=== PATIENT | female | born 1960 | race Two or more races ===

== ENCOUNTER 2017-08-14 16:44 | Inpatient (IN) | payer MEDICAID, OTHER ==
[~2017-08-14] VITALS: Ht 152.4 cm; Wt 80.8 kg
[2017-08-14] MEDS ORDERED: SODIUM CHLORIDE 0.9% 1,000ML IVBOLUS ONE (17:00)
[2017-08-14] MEDS ORDERED: SODIUM CHLORIDE FLUSH 10ML SYR IVF ONE (17:00)
[2017-08-14] MEDS ORDERED: PANTOPRAZOLE 80 MG in SODIUM CHLORIDE 0.9% 100 ML IV SCH (17:16)
[2017-08-14] MEDS ORDERED: PANTOPRAZOLE 80 MG in SODIUM CHLORIDE 0.9% 50 ML IVPB ONE (17:16)
[2017-08-14 17:22] LABS: MEAN CORPUSCULAR HEMOGLOBIN 40.6 pg (27.0-34.8); MEAN CORPUSCULAR HGB CONC 33.4 g/dL (32.4-35.8); MEAN CORPUSCULAR VOLUME 121.5 fL (80-100); MEAN PLATELET VOLUME 7.3 fL (7.4-10.4); PLATELET COUNT 479 x10^3/uL (130-400); RED BLOOD COUNT 2.57 x10^6/uL (3.82-5.3); RED CELL DISTRIBUTION WIDTH 15.5 % (9.6-15.2)
[2017-08-14] MEDS ORDERED: PLEASE ENTER WEIGHT MC SCH (17:26)
[2017-08-14 17:37] LABS: ALANINE AMINOTRANSFERASE 44 U/L (12-78); ALBUMIN 1.7 g/dL (3.4-5.0); ANION GAP 13 mmol/L (5-15); CHLORIDE 98 mmol/L (98-107); CREATININE 1.84 mg/dL (0.55-1.02)
[2017-08-14 17:39] LABS: ALKALINE PHOSPHATASE 221 U/L (45-117); BILIRUBIN,TOTAL 9.8 mg/dL (0.2-1.0); TOTAL PROTEIN 6.1 g/dL (6.4-8.2)
[2017-08-14 17:53] LABS: INTERNATIONAL NORMALIZED RATIO 1.34 (0.93-1.1); PROTHROMBIN TIME 13.7 Seconds (9.6-11.5)
[2017-08-14 18:01] LABS: T4 (THYROXINE) 11.6 mcg/dL (4.8-13.9)
[2017-08-14 18:05] LABS: TROPONIN I < 0.015 ng/mL (0.000-0.045)
[2017-08-14 19:28] LABS: BASOPHILS # (AUTO) 0.01 x10^3/uL (0-0.1); BASOPHILS % (AUTO) 0 % (0-1); EOSINOPHILS # (AUTO) 0.02 x10^3/uL (0-0.4); EOSINOPHILS % (AUTO) 0 % (1-7); LYMPHOCYTES # (AUTO) 1.65 x10^3/uL (1-3.4); LYMPHOCYTES % (AUTO) 12 % (22-44); MD NO; MONOCYTES # (AUTO) 0.26 x10^3/uL (0.2-0.8); MONOCYTES % (AUTO) 2 % (2-9); NEUTROPHILS # (AUTO) 12.14 x10^3/uL (1.8-6.8); NEUTROPHILS % (AUTO) 86 % (42-75)
[2017-08-14 21:05] LABS: CULTURE INDICATED? YES; MICROSCOPIC INDICATED
[2017-08-14] MEDS ORDERED: CEFTRIAXONE PMX 1GM/50ML 50 ML IV ONE (21:30)
[2017-08-14] MEDS ORDERED: POTASSIUM CHLORIDE 30 MEQ in SODIUM CHLORIDE 0.9% 1,000 ML IV SCH (22:30)
[2017-08-14 22:55] VITALS: BP 103/66
[2017-08-14] MEDS ORDERED: BISACODYL 10 MG SUPP PR PRN (23:00)
[2017-08-14] MEDS ORDERED: morphine SULFATE 10 MG/ML, 1ML IVPush PRN (23:00)
[2017-08-14] MEDS ORDERED: ONDANSETRON 2MG/ML, 2ML IVPush PRN (23:00)
[2017-08-14] MEDS ORDERED: POLYETHYLENE GLYCOL 17 GM PACKET PO PRN (23:00)
[2017-08-14 23:35] LABS: FOLATE LEVEL 7.8 ng/mL (3.1-17.5); FREE T4 (FREE THYROXINE) 1.65 ng/dL (0.76-1.46)
[2017-08-14] MEDS: CEFTRIAXONE PMX 1GM/50ML 50 ML IV SCH (23:59)
[2017-08-15] MEDS ORDERED: PROP40TA PO (03:10)
[2017-08-15 05:29] VITALS: BP 95/60
[2017-08-15 05:56] LABS: INTERNATIONAL NORMALIZED RATIO 1.42 (0.93-1.1); MEAN CORPUSCULAR HEMOGLOBIN 40.5 pg (27.0-34.8); MEAN CORPUSCULAR HGB CONC 33.8 g/dL (32.4-35.8); MEAN PLATELET VOLUME 7.1 fL (7.4-10.4); PLATELET COUNT 329 x10^3/uL (130-400); PROTHROMBIN TIME 14.5 Seconds (9.6-11.5); RED BLOOD COUNT 2.24 x10^6/uL (3.82-5.3); RED CELL DISTRIBUTION WIDTH 15.1 % (9.6-15.2)
[2017-08-15 06:02] LABS: ALANINE AMINOTRANSFERASE 32 U/L (12-78); ALBUMIN 1.3 g/dL (3.4-5.0); ANION GAP 10 mmol/L (5-15); CALCIUM 7.5 mg/dL (8.5-10.1); CHLORIDE 103 mmol/L (98-107); CREATININE 1.61 mg/dL (0.55-1.02)
[2017-08-15 06:04] LABS: ALKALINE PHOSPHATASE 161 U/L (45-117); BILIRUBIN,TOTAL 7.6 mg/dL (0.2-1.0)
[2017-08-15 06:15] LABS: BASOPHILS # (AUTO) 0.04 x10^3/uL (0-0.1); BASOPHILS % (AUTO) 0 % (0-1); EOSINOPHILS # (AUTO) 0.07 x10^3/uL (0-0.4); EOSINOPHILS % (AUTO) 1 % (1-7); LYMPHOCYTES # (AUTO) 1.34 x10^3/uL (1-3.4); LYMPHOCYTES % (AUTO) 12 % (22-44); MD SCAN; MONOCYTES # (AUTO) 0.35 x10^3/uL (0.2-0.8); MONOCYTES % (AUTO) 3 % (2-9); NEUTROPHILS # (AUTO) 9.12 x10^3/uL (1.8-6.8); NEUTROPHILS % (AUTO) 84 % (42-75)
[2017-08-15] MEDS ORDERED: CALC-545 PO (06:18)
[2017-08-15] MEDS ORDERED: CALC600T4 PO (06:21)
[2017-08-15 08:06] VITALS: BP 91/62
[2017-08-15] MEDS: SENNA/DOCUSATE TABLET PO SCH (09:00)
[2017-08-15 12:22] LABS: CELLS COUNTED 14
[2017-08-15 14:46] VITALS: BP 87/60
[2017-08-15] MEDS: POTASSIUM CHLORIDE 20 MEQ TAB.ER.PRT PO SCH (17:20)
[2017-08-15] MEDS: PANTOPRAZOLE 40 MG IV IVPush SCH (17:21)
[2017-08-15] MEDS ORDERED: PHARMACY MAY ADJ FOR RENAL FX MC PRN (17:30)
[2017-08-15] MEDS: THIAMINE 100MG TABLET PO SCH (17:31)
[2017-08-15 20:44] LABS: CLOSTRIDIUM DIFFICILE ANTIGEN POSITIVE; CLOSTRIDIUM DIFFICILE TOXIN NEGATIVE (Negative)
[2017-08-15 21:46] VITALS: BP 100/65
[2017-08-15] MEDS ORDERED: POTASSIUM CHLORIDE 40 MEQ in SODIUM CHLORIDE 0.9% 1,000 ML IV SCH (22:30)
[2017-08-15] MEDS: CEFTRIAXONE PMX 1GM/50ML 50 ML IV SCH (23:29)
[2017-08-16 01:26] VITALS: BP 99/68
[2017-08-16 06:06] LABS: ALANINE AMINOTRANSFERASE 34 U/L (12-78); ALBUMIN 1.3 g/dL (3.4-5.0); ANION GAP 11 mmol/L (5-15); CALCIUM 7.6 mg/dL (8.5-10.1); CHLORIDE 106 mmol/L (98-107)
[2017-08-16] MEDS: PANTOPRAZOLE 40 MG IV IVPush SCH (06:07)
[2017-08-16 06:09] LABS: ALKALINE PHOSPHATASE 162 U/L (45-117); BILIRUBIN,TOTAL 6.7 mg/dL (0.2-1.0); CREATININE 1.65 mg/dL (0.55-1.02); TOTAL PROTEIN 4.8 g/dL (6.4-8.2)
[2017-08-16 06:11] LABS: MEAN CORPUSCULAR HEMOGLOBIN 39.6 pg (27.0-34.8); MEAN CORPUSCULAR HGB CONC 33.1 g/dL (32.4-35.8); MEAN CORPUSCULAR VOLUME 119.7 fL (80-100); MEAN PLATELET VOLUME 7.4 fL (7.4-10.4); PLATELET COUNT 294 x10^3/uL (130-400); RED BLOOD COUNT 2.14 x10^6/uL (3.82-5.3); RED CELL DISTRIBUTION WIDTH 15.2 % (9.6-15.2)
[2017-08-16 06:31] LABS: BASOPHILS # (AUTO) 0.01 x10^3/uL (0-0.1); BASOPHILS % (AUTO) 0 % (0-1); EOSINOPHILS # (AUTO) 0.04 x10^3/uL (0-0.4); EOSINOPHILS % (AUTO) 0 % (1-7); LYMPHOCYTES # (AUTO) 2.22 x10^3/uL (1-3.4); LYMPHOCYTES % (AUTO) 21 % (22-44); MD SCAN; MONOCYTES % (AUTO) 4 % (2-9); NEUTROPHILS # (AUTO) 8.11 x10^3/uL (1.8-6.8); NEUTROPHILS % (AUTO) 75 % (42-75)
[2017-08-16 06:42] VITALS: BP 96/68
[2017-08-16] MEDS: SENNA/DOCUSATE TABLET PO SCH (09:00)
[2017-08-16] MEDS: POTASSIUM CHLORIDE 20 MEQ TAB.ER.PRT PO SCH (09:08)
[2017-08-16] MEDS: THIAMINE 100MG TABLET PO SCH (09:08)
[2017-08-16] MEDS: SODIUM CHLORIDE 0.9% 1,000 ML IV SCH ×2 (10:28→20:46)
[2017-08-16] MEDS ORDERED: SODIUM CHLORIDE 0.9% 1,000 ML IV SCH (10:30)
[2017-08-16 12:54] VITALS: BP 90/61
[2017-08-16 19:56] VITALS: BP 98/67
[2017-08-16] MEDS: HEPARIN 5,000 UNITS/ML, 1ML SQ SCH (20:00)
[2017-08-17 01:20] VITALS: BP 84/52
[2017-08-17] MEDS: HEPARIN 5,000 UNITS/ML, 1ML SQ SCH ×3 (06:13→21:21)
[2017-08-17] MEDS: PANTOPROZOLE 40MG TABLET PO SCH (06:13)
[2017-08-17 06:22] LABS: MEAN CORPUSCULAR HEMOGLOBIN 40.5 pg (27.0-34.8); MEAN CORPUSCULAR HGB CONC 33.6 g/dL (32.4-35.8); MEAN CORPUSCULAR VOLUME 120.7 fL (80-100); MEAN PLATELET VOLUME 7.4 fL (7.4-10.4); PLATELET COUNT 304 x10^3/uL (130-400); RED BLOOD COUNT 2.36 x10^6/uL (3.82-5.3); RED CELL DISTRIBUTION WIDTH 15.7 % (9.6-15.2)
[2017-08-17 06:31] LABS: ALBUMIN 1.4 g/dL (3.4-5.0); ANION GAP 11 mmol/L (5-15); CALCIUM 7.6 mg/dL (8.5-10.1); CHLORIDE 109 mmol/L (98-107)
[2017-08-17 06:36] LABS: ALANINE AMINOTRANSFERASE 37 U/L (12-78); ALKALINE PHOSPHATASE 204 U/L (45-117); BILIRUBIN,TOTAL 7.3 mg/dL (0.2-1.0); CREATININE 1.22 mg/dL (0.55-1.02); TOTAL PROTEIN 5.2 g/dL (6.4-8.2)
[2017-08-17 06:47] LABS: BASOPHILS # (AUTO) 0.07 x10^3/uL (0-0.1); BASOPHILS % (AUTO) 1 % (0-1); EOSINOPHILS # (AUTO) 0.06 x10^3/uL (0-0.4); EOSINOPHILS % (AUTO) 1 % (1-7); LYMPHOCYTES # (AUTO) 1.94 x10^3/uL (1-3.4); LYMPHOCYTES % (AUTO) 16 % (22-44); MD SCAN; MONOCYTES # (AUTO) 0.39 x10^3/uL (0.2-0.8); MONOCYTES % (AUTO) 3 % (2-9); NEUTROPHILS % (AUTO) 80 % (42-75)
[2017-08-17 07:56] VITALS: BP 112/66
[2017-08-17] MEDS: SENNA/DOCUSATE TABLET PO SCH (08:51)
[2017-08-17] MEDS: THIAMINE 100MG TABLET PO SCH (08:51)
[2017-08-17] MEDS ORDERED: CEFTRIAXONE PMX 2GM/50ML 50 ML IV SCH (10:00)
[2017-08-17] MEDS: VANCOMYCIN 50 MG/ML ORAL SUSP PO SCH ×3 (10:39→22:48)
[2017-08-17] MEDS ORDERED: LIDOCAINE 2%, 20ML ONE (10:50)
[2017-08-17 12:50] VITALS: BP 91/52
[2017-08-17 12:54] LABS: CELLS COUNTED 10
[2017-08-17 20:03] VITALS: BP 111/71
[2017-08-18 02:03] VITALS: BP 108/69
[2017-08-18] MEDS: HEPARIN 5,000 UNITS/ML, 1ML SQ SCH ×3 (05:09→22:02)
[2017-08-18] MEDS: VANCOMYCIN 50 MG/ML ORAL SUSP PO SCH ×3 (05:09→17:15)
[2017-08-18 05:12] LABS: MEAN CORPUSCULAR HEMOGLOBIN 40.1 pg (27.0-34.8); MEAN CORPUSCULAR HGB CONC 33.3 g/dL (32.4-35.8); MEAN CORPUSCULAR VOLUME 120.5 fL (80-100); MEAN PLATELET VOLUME 7.4 fL (7.4-10.4); PLATELET COUNT 280 x10^3/uL (130-400); RED BLOOD COUNT 2.24 x10^6/uL (3.82-5.3); RED CELL DISTRIBUTION WIDTH 15.1 % (9.6-15.2)
[2017-08-18 05:19] LABS: CHLORIDE 108 mmol/L (98-107)
[2017-08-18 05:27] LABS: ALANINE AMINOTRANSFERASE 34 U/L (12-78); ALBUMIN 1.3 g/dL (3.4-5.0); ALKALINE PHOSPHATASE 191 U/L (45-117); ANION GAP 8 mmol/L (5-15); BILIRUBIN,TOTAL 6.4 mg/dL (0.2-1.0); CALCIUM 7.6 mg/dL (8.5-10.1); CREATININE 1.09 mg/dL (0.55-1.02); TOTAL PROTEIN 4.8 g/dL (6.4-8.2)
[2017-08-18 06:11] LABS: BASOPHILS % (AUTO) 0 % (0-1); EOSINOPHILS # (AUTO) 0.05 x10^3/uL (0-0.4); EOSINOPHILS % (AUTO) 1 % (1-7); LYMPHOCYTES % (AUTO) 16 % (22-44); MD MORPH REVIEW ONLY; MONOCYTES % (AUTO) 5 % (2-9); NEUTROPHILS % (AUTO) 78 % (42-75)
[2017-08-18 06:12] LABS: ANISOCYTOSIS 1+; POLYCHROMASIA 1+
[2017-08-18 06:13] LABS: <PLATELET ESTIMATE> ADEQUATE; <PLT MORPHOLOGY> NORMAL PLT MORPH
[2017-08-18 07:10] VITALS: BP 91/49
[2017-08-18] MEDS: PANTOPROZOLE 40MG TABLET PO SCH (08:50)
[2017-08-18] MEDS: THIAMINE 100MG TABLET PO SCH (08:50)
[2017-08-18] MEDS: SENNA/DOCUSATE TABLET PO SCH (08:50)
[2017-08-18 12:20] VITALS: BP 109/60
[2017-08-18 21:29] VITALS: BP 102/67
[2017-08-19] MEDS: VANCOMYCIN 50 MG/ML ORAL SUSP PO SCH ×4 (00:41→19:05)
[2017-08-19 03:30] VITALS: BP 110/62
[2017-08-19 05:32] LABS: MEAN CORPUSCULAR HEMOGLOBIN 40.2 pg (27.0-34.8); MEAN CORPUSCULAR HGB CONC 33.9 g/dL (32.4-35.8); MEAN CORPUSCULAR VOLUME 118.8 fL (80-100); MEAN PLATELET VOLUME 6.8 fL (7.4-10.4); PLATELET COUNT 268 x10^3/uL (130-400); RED BLOOD COUNT 2.18 x10^6/uL (3.82-5.3); RED CELL DISTRIBUTION WIDTH 15.1 % (9.6-15.2)
[2017-08-19 05:45] LABS: CHLORIDE 107 mmol/L (98-107)
[2017-08-19 05:51] LABS: ALANINE AMINOTRANSFERASE 31 U/L (12-78); ALBUMIN 1.3 g/dL (3.4-5.0); ALKALINE PHOSPHATASE 177 U/L (45-117); BILIRUBIN,TOTAL 6.1 mg/dL (0.2-1.0); CALCIUM 7.5 mg/dL (8.5-10.1); CREATININE 0.94 mg/dL (0.55-1.02); TOTAL PROTEIN 4.7 g/dL (6.4-8.2)
[2017-08-19 06:07] LABS: ANION GAP 8 mmol/L (5-15)
[2017-08-19 06:08] LABS: BASOPHILS # (AUTO) 0.02 x10^3/uL (0-0.1); BASOPHILS % (AUTO) 0 % (0-1); EOSINOPHILS # (AUTO) 0.02 x10^3/uL (0-0.4); EOSINOPHILS % (AUTO) 0 % (1-7); LYMPHOCYTES # (AUTO) 1.73 x10^3/uL (1-3.4); LYMPHOCYTES % (AUTO) 17 % (22-44); MD SCAN; MONOCYTES % (AUTO) 4 % (2-9); NEUTROPHILS % (AUTO) 79 % (42-75)
[2017-08-19] MEDS: HEPARIN 5,000 UNITS/ML, 1ML SQ SCH ×2 (06:39→15:47)
[2017-08-19 07:20] VITALS: BP 93/51
[2017-08-19] MEDS: SENNA/DOCUSATE TABLET PO SCH (08:34)
[2017-08-19] MEDS: PANTOPROZOLE 40MG TABLET PO SCH (08:34)
[2017-08-19] MEDS: THIAMINE 100MG TABLET PO SCH (08:34)
[2017-08-19 13:10] VITALS: BP 92/60
[2017-08-19 20:01] VITALS: BP 104/68
[2017-08-20] MEDS: HEPARIN 5,000 UNITS/ML, 1ML SQ SCH ×3 (01:10→17:31)
[2017-08-20] MEDS: VANCOMYCIN 50 MG/ML ORAL SUSP PO SCH ×4 (01:10→17:31)
[2017-08-20 04:13] VITALS: BP 120/77
[2017-08-20 05:52] LABS: MEAN CORPUSCULAR HEMOGLOBIN 40.1 pg (27.0-34.8); MEAN CORPUSCULAR HGB CONC 33.9 g/dL (32.4-35.8); MEAN CORPUSCULAR VOLUME 118.1 fL (80-100); MEAN PLATELET VOLUME 6.7 fL (7.4-10.4); PLATELET COUNT 288 x10^3/uL (130-400); RED BLOOD COUNT 2.31 x10^6/uL (3.82-5.3); RED CELL DISTRIBUTION WIDTH 14.9 % (9.6-15.2)
[2017-08-20 05:55] LABS: CALCIUM 7.9 mg/dL (8.5-10.1); CHLORIDE 106 mmol/L (98-107)
[2017-08-20 06:02] LABS: ALANINE AMINOTRANSFERASE 31 U/L (12-78); ALBUMIN 1.3 g/dL (3.4-5.0); ALKALINE PHOSPHATASE 183 U/L (45-117); ANION GAP 10 mmol/L (5-15); BILIRUBIN,TOTAL 6.3 mg/dL (0.2-1.0); CREATININE 1.03 mg/dL (0.55-1.02)
[2017-08-20 06:30] LABS: BASOPHILS # (AUTO) 0.01 x10^3/uL (0-0.1); BASOPHILS % (AUTO) 0 % (0-1); EOSINOPHILS # (AUTO) 0.03 x10^3/uL (0-0.4); EOSINOPHILS % (AUTO) 0 % (1-7); LYMPHOCYTES # (AUTO) 0.77 x10^3/uL (1-3.4); LYMPHOCYTES % (AUTO) 8 % (22-44); MD SCAN; MONOCYTES # (AUTO) 0.18 x10^3/uL (0.2-0.8); MONOCYTES % (AUTO) 2 % (2-9); NEUTROPHILS # (AUTO) 8.42 x10^3/uL (1.8-6.8); NEUTROPHILS % (AUTO) 89 % (42-75)
[2017-08-20] MEDS: PANTOPROZOLE 40MG TABLET PO SCH (08:21)
[2017-08-20] MEDS: SENNA/DOCUSATE TABLET PO SCH (08:21)
[2017-08-20] MEDS: THIAMINE 100MG TABLET PO SCH (08:22)
[2017-08-20 08:27] VITALS: BP 110/49
[2017-08-20 15:15] VITALS: BP 111/72
[2017-08-20 20:59] VITALS: BP 114/68
[2017-08-20] MEDS: ACETAMINOPHEN 325 MG TABLET PO PRN (22:58)
[2017-08-21] MEDS: VANCOMYCIN 50 MG/ML ORAL SUSP PO SCH ×4 (00:18→19:27)
[2017-08-21 00:22] VITALS: BP 112/68
[2017-08-21] MEDS: HEPARIN 5,000 UNITS/ML, 1ML SQ SCH ×3 (01:17→19:28)
[2017-08-21] MEDS: SENNA/DOCUSATE TABLET PO SCH (07:38)
[2017-08-21 09:25] VITALS: BP 103/61
[2017-08-21] MEDS: THIAMINE 100MG TABLET PO SCH (09:36)
[2017-08-21] MEDS: PANTOPROZOLE 40MG TABLET PO SCH (09:36)
[2017-08-21 12:51] VITALS: BP 98/63
[2017-08-21 19:50] VITALS: BP 110/73
[2017-08-21] MEDS: ACETAMINOPHEN 325 MG TABLET PO PRN (22:52)
[2017-08-22] MEDS: VANCOMYCIN 50 MG/ML ORAL SUSP PO SCH ×3 (02:02→17:45)
[2017-08-22 02:36] VITALS: BP 104/67
[2017-08-22] MEDS: HEPARIN 5,000 UNITS/ML, 1ML SQ SCH ×2 (03:32→10:43)
[2017-08-22 07:10] VITALS: BP 94/62
[2017-08-22] MEDS: SENNA/DOCUSATE TABLET PO SCH (07:44)
[2017-08-22] MEDS: THIAMINE 100MG TABLET PO SCH (10:30)
[2017-08-22] MEDS: PANTOPROZOLE 40MG TABLET PO SCH (10:30)
[2017-08-22] MEDS ORDERED: VANC1VIA3 PO (14:56)
[2017-08-22 15:26] VITALS: BP 107/76
== END 2017-08-22 18:07 | disposition home or self-care (01) | DRG 432 ==
LOC: ED 20:11 → EDIP 21:58 → 4WST 23:31
PROVIDERS: ADMIT Internal Medicine; ATTEND Internal Medicine
PROC: 0W9G3ZZ Drainage of Peritoneal Cavity, Percutaneous Approach (ICD-10-PCS; principal; 2017-08-15)
PROC: 0W9G3ZZ Drainage of Peritoneal Cavity, Percutaneous Approach (ICD-10-PCS; 2017-08-17)
DX: K70.31 Alcoholic cirrhosis of liver with ascites (principal); E43 Unspecified severe protein-calorie malnutrition; N17.0 Acute kidney failure with tubular necrosis; A04.72 Enterocolitis due to Clostridium difficile, not specified as recurrent; D68.9 Coagulation defect, unspecified; E87.1 Hypo-osmolality and hyponatremia; E87.2 Acidosis; N39.0 Urinary tract infection, site not specified; K70.11 Alcoholic hepatitis with ascites; D53.9 Nutritional anemia, unspecified; D63.8 Anemia in other chronic diseases classified elsewhere; E87.6 Hypokalemia; G89.29 Other chronic pain; K76.0 Fatty (change of) liver, not elsewhere classified; K82.8 Other specified diseases of gallbladder; D50.9 Iron deficiency anemia, unspecified; D47.3 Essential (hemorrhagic) thrombocythemia; Z68.34 Body mass index [BMI] 34.0-34.9, adult
CPT/HCPCS: 36415; 49083; 71045; 74176; 76700; 80053; 80074; 81001; 82042; 82248; 82607; 82746; 82945; 83605; 83690; 83735; 83880; 84100; 84157; 84436; 84439; 84443; 84484; 85025; 85610; 85730; 86677; 86850; 86900; 87015; 87070; 87075; 87086; 87116; 87205; 87206; 87324; 87493; 88112; 88305; 89051; 93005; J0696; J1644; J2405; J3370; J3480; J3490; C9113; J7030

== ENCOUNTER → 2017-09-06 | Outpatient (CLI) | payer MEDICAID ==
[~2017-09-06] MED LIST: CALC-545 PO; CALC600T4 PO; LIDOCAINE-MPF 2% ,5ML ONE; PROP40TA PO; VANC1VIA3 PO
== END | disposition home or self-care (01) ==
LOC: RAD 14:08
PROVIDERS: ATTEND Family Medicine Adult Medicine
DX: R18.8 Other ascites (principal)
CPT/HCPCS: 49083; J3490

== ENCOUNTER → 2017-09-11 | Outpatient (CLI) | payer MEDICAID | END | disposition home or self-care (01) | LOC: RAD 10:38 | PROVIDERS: ATTEND Family Medicine Adult Medicine | DX: K70.31 Alcoholic cirrhosis of liver with ascites (principal) | CPT/HCPCS: 49083; J3490 ==

== ENCOUNTER → 2017-09-20 | Outpatient (CLI) | payer MEDICAID ==
[~2017-09-20] MED LIST changes: -LIDOCAINE-MPF 2% ,5ML ONE
== END | disposition home or self-care (01) ==
LOC: RAD 12:03
PROVIDERS: ATTEND Family Medicine Adult Medicine
DX: K70.31 Alcoholic cirrhosis of liver with ascites (principal); R14.0 Abdominal distension (gaseous)
CPT/HCPCS: 49083

== ENCOUNTER → 2017-10-03 | Outpatient (CLI) | payer MEDICAID ==
[~2017-10-03] MED LIST changes: +LIDOCAINE-MPF 1%, 2ML ONE
== END | disposition home or self-care (01) ==
LOC: RAD 11:11
PROVIDERS: ATTEND Family Medicine Adult Medicine
DX: K70.31 Alcoholic cirrhosis of liver with ascites (principal)
CPT/HCPCS: 49083; J3490

== ENCOUNTER 2017-10-11 11:35 | Inpatient (IN) | payer MEDICAID ==
[~2017-10-11] VITALS: Ht 172.7 cm; Wt 67.2 kg
[~2017-10-11 11:35] MED LIST changes: -LIDOCAINE-MPF 1%, 2ML ONE
[2017-10-11] MEDS ORDERED: OXYC5CAP2 PO (11:58)
[2017-10-11] MEDS ORDERED: ONDA4TAB12 PO (11:58)
[2017-10-11] MEDS ORDERED: SPIR100T4 PO (11:58)
[2017-10-11] MEDS ORDERED: FURO20TA3 PO (11:58)
[2017-10-11] MEDS ORDERED: OMEP20TA62 PO (11:58)
[2017-10-11] MEDS ORDERED: SODIUM CHLORIDE FLUSH 10ML SYR IVF ONE (12:30)
[2017-10-11] MEDS ORDERED: SODIUM CHLORIDE 0.9% 1,000ML IVBOLUS ONE (12:30)
[2017-10-11 12:56] LABS: ALANINE AMINOTRANSFERASE 21 U/L (12-78); ALBUMIN 1.9 g/dL (3.4-5.0); ANION GAP 12 mmol/L (5-15); CALCIUM 8.5 mg/dL (8.5-10.1); CHLORIDE 91 mmol/L (98-107); CREATININE 1.69 mg/dL (0.55-1.02)
[2017-10-11 12:58] LABS: ALKALINE PHOSPHATASE 193 U/L (45-117); BILIRUBIN,TOTAL 3.8 mg/dL (0.2-1.0); TOTAL PROTEIN 6.8 g/dL (6.4-8.2)
[2017-10-11 13:10] LABS: MEAN CORPUSCULAR HEMOGLOBIN 34.8 pg (27.0-34.8); MEAN CORPUSCULAR HGB CONC 34.5 g/dL (32.4-35.8); MEAN PLATELET VOLUME 7.1 fL (7.4-10.4); PLATELET COUNT 177 x10^3/uL (130-400); RED BLOOD COUNT 3.24 x10^6/uL (3.82-5.3); RED CELL DISTRIBUTION WIDTH 16.6 % (9.6-15.2)
[2017-10-11 13:13] LABS: MD YES
[2017-10-11 13:15] LABS: BASOS#(MANUAL) 0.07 x10^3/uL (0-0.1); BASOS% (MANUAL) 1 % (0-1); LYMPH#(MANUAL) 0.53 x10^3/uL (1-3.4); LYMPHS% (MANUAL) 8 % (22-44); MONOS% (MANUAL) 3 % (2-9); SEG#(MANUAL) 5.81 x10^3/uL (1.8-6.8); SEGS% (MANUAL) 88 % (42-75)
[2017-10-11 13:16] LABS: ANISOCYTOSIS 1+; TARGET CELLS 1+
[2017-10-11 13:17] LABS: <PLATELET ESTIMATE> ADEQUATE; <PLT MORPHOLOGY> NORMAL PLT MORPH
[2017-10-11 13:55] LABS: CULTURE INDICATED? YES; MICROSCOPIC INDICATED
[2017-10-11] MEDS ORDERED: CEFTRIAXONE PMX 1GM/50ML 50 ML ONE (14:03)
[2017-10-11] MEDS ORDERED: CEFTRIAXONE 1,000 MG in SODIUM CHLORIDE 0.9% 50 ML IV ONE (14:30)
[2017-10-11 15:22] LABS: INTERNATIONAL NORMALIZED RATIO 1.19 (0.93-1.1); PROTHROMBIN TIME 12.2 Seconds (9.6-11.5)
[2017-10-11] MEDS ORDERED: POLYETHYLENE GLYCOL 17 GM PACKET PO PRN (15:30)
[2017-10-11] MEDS ORDERED: ONDANSETRON 2MG/ML, 2ML IVPush PRN (15:30)
[2017-10-11] MEDS ORDERED: LABETALOL 5MG/ML, 20ML IVPush PRN (15:30)
[2017-10-11] MEDS ORDERED: BISACODYL 10 MG SUPP PR PRN (15:30)
[2017-10-11] MEDS ORDERED: DOCUSATE 100 MG CAPSULE PO PRN (15:30)
[2017-10-11 15:45] VITALS: BP 95/67
[2017-10-11] MEDS: ACETAMINOPHEN 325 MG TABLET PO PRN (16:54)
[2017-10-11] MEDS: CEFTRIAXONE 1,000 MG in SODIUM CHLORIDE 0.9% 50 ML IV SCH (18:37)
[2017-10-11] MEDS: NS + 20MEQ KCL 1,000 ML IV SCH (18:37)
[2017-10-11] MEDS: HEPARIN 5,000 UNITS/ML, 1ML SQ SCH (18:37)
[2017-10-11 21:42] VITALS: BP 110/55
[2017-10-12 02:12] VITALS: BP 95/60
[2017-10-12] MEDS: HEPARIN 5,000 UNITS/ML, 1ML SQ SCH ×3 (02:14→18:46)
[2017-10-12] MEDS: ACETAMINOPHEN 325 MG TABLET PO PRN ×2 (02:18→12:47)
[2017-10-12 05:41] LABS: BASOPHILS # (AUTO) 0.01 x10^3/uL (0-0.1); BASOPHILS % (AUTO) 0 % (0-1); EOSINOPHILS # (AUTO) 0.02 x10^3/uL (0-0.4); EOSINOPHILS % (AUTO) 0 % (1-7); LYMPHOCYTES % (AUTO) 33 % (22-44); MD NO; MEAN CORPUSCULAR HEMOGLOBIN 34.1 pg (27.0-34.8); MEAN CORPUSCULAR HGB CONC 33.8 g/dL (32.4-35.8); MEAN CORPUSCULAR VOLUME 100.9 fL (80-100); MEAN PLATELET VOLUME 6.9 fL (7.4-10.4); MONOCYTES % (AUTO) 8 % (2-9); NEUTROPHILS # (AUTO) 3.72 x10^3/uL (1.8-6.8); NEUTROPHILS % (AUTO) 59 % (42-75); PLATELET COUNT 147 x10^3/uL (130-400); RED BLOOD COUNT 2.93 x10^6/uL (3.82-5.3); RED CELL DISTRIBUTION WIDTH 16.9 % (9.6-15.2)
[2017-10-12 05:42] LABS: ALBUMIN 1.5 g/dL (3.4-5.0); ANION GAP 9 mmol/L (5-15); CALCIUM 7.9 mg/dL (8.5-10.1); CHLORIDE 95 mmol/L (98-107)
[2017-10-12 05:47] LABS: ALANINE AMINOTRANSFERASE 17 U/L (12-78); ALKALINE PHOSPHATASE 153 U/L (45-117); BILIRUBIN,TOTAL 2.7 mg/dL (0.2-1.0); CREATININE 1.46 mg/dL (0.55-1.02); TOTAL PROTEIN 5.7 g/dL (6.4-8.2)
[2017-10-12 06:59] VITALS: BP 97/67
[2017-10-12] MEDS: THIAMINE 100MG TABLET PO SCH (09:09)
[2017-10-12] MEDS: MULTIVITAMIN 1 TABLET PO SCH (09:09)
[2017-10-12] MEDS: FOLIC ACID 1 MG TABLET PO SCH (09:09)
[2017-10-12] MEDS: NS + 20MEQ KCL 1,000 ML IV SCH (12:17)
[2017-10-12 12:45] VITALS: BP 96/61
[2017-10-12] MEDS ORDERED: LIDOCAINE-MPF 2%, 2ML ONE (12:50)
[2017-10-12] MEDS: CEFTRIAXONE 1,000 MG in SODIUM CHLORIDE 0.9% 50 ML IV SCH (16:01)
[2017-10-12 22:10] VITALS: BP 101/62
[2017-10-13 01:57] VITALS: BP 103/67
[2017-10-13] MEDS: HEPARIN 5,000 UNITS/ML, 1ML SQ SCH ×3 (02:39→18:18)
[2017-10-13 05:52] LABS: ALBUMIN 1.5 g/dL (3.4-5.0); ANION GAP 7 mmol/L (5-15); CHLORIDE 101 mmol/L (98-107)
[2017-10-13 05:55] LABS: ALANINE AMINOTRANSFERASE 17 U/L (12-78); ALKALINE PHOSPHATASE 154 U/L (45-117); BILIRUBIN,TOTAL 2.3 mg/dL (0.2-1.0); CREATININE 1.14 mg/dL (0.55-1.02); TOTAL PROTEIN 5.5 g/dL (6.4-8.2)
[2017-10-13 06:58] LABS: MEAN CORPUSCULAR HEMOGLOBIN 34.7 pg (27.0-34.8); MEAN CORPUSCULAR HGB CONC 34.3 g/dL (32.4-35.8); MEAN CORPUSCULAR VOLUME 101.1 fL (80-100); PLATELET COUNT 147 x10^3/uL (130-400); RED BLOOD COUNT 2.85 x10^6/uL (3.82-5.3); RED CELL DISTRIBUTION WIDTH 17.3 % (9.6-15.2)
[2017-10-13 08:27] VITALS: BP 93/47
[2017-10-13 08:34] LABS: MD YES
[2017-10-13 08:36] LABS: BASOS#(MANUAL) 0.09 x10^3/uL (0-0.1); BASOS% (MANUAL) 2 % (0-1); EOS#(MANUAL) 0.09 x10^3/uL (0.0-0.4); EOS% (MANUAL) 2 % (1-7); LYMPH#(MANUAL) 0.97 x10^3/uL (1-3.4); LYMPHS% (MANUAL) 21 % (22-44); MONOS#(MANUAL) 0.23 x10^3/uL (0.3-2.7); MONOS% (MANUAL) 5 % (2-9); SEG#(MANUAL) 3.22 x10^3/uL (1.8-6.8); SEGS% (MANUAL) 70 % (42-75)
[2017-10-13 08:37] LABS: ANISOCYTOSIS 1+
[2017-10-13 08:38] LABS: <PLATELET ESTIMATE> ADEQUATE; <PLT MORPHOLOGY> NORMAL PLT MORPH; TARGET CELLS 1+
[2017-10-13] MEDS: MULTIVITAMIN 1 TABLET PO SCH (09:15)
[2017-10-13] MEDS: FOLIC ACID 1 MG TABLET PO SCH (09:15)
[2017-10-13] MEDS: THIAMINE 100MG TABLET PO SCH (09:15)
[2017-10-13 13:50] VITALS: BP 94/58
[2017-10-13 13:54] LABS: CLOSTRIDIUM DIFFICILE ANTIGEN POSITIVE; CLOSTRIDIUM DIFFICILE TOXIN NEGATIVE (Negative)
[2017-10-13] MEDS: CEFTRIAXONE 1,000 MG in SODIUM CHLORIDE 0.9% 50 ML IV SCH (16:39)
[2017-10-13] MEDS: ACETAMINOPHEN 325 MG TABLET PO PRN (17:05)
[2017-10-13] MEDS: VANCOMYCIN 50 MG/ML ORAL SUSP PO SCH (18:18)
[2017-10-13 18:31] VITALS: BP 96/60
[2017-10-14] MEDS: VANCOMYCIN 50 MG/ML ORAL SUSP PO SCH ×4 (01:05→18:15)
[2017-10-14 02:23] VITALS: BP 91/57
[2017-10-14] MEDS: HEPARIN 5,000 UNITS/ML, 1ML SQ SCH ×3 (02:23→19:30)
[2017-10-14 06:16] LABS: ALBUMIN 1.5 g/dL (3.4-5.0); ANION GAP 11 mmol/L (5-15); CALCIUM 7.6 mg/dL (8.5-10.1); CHLORIDE 99 mmol/L (98-107)
[2017-10-14 06:19] LABS: ALANINE AMINOTRANSFERASE 17 U/L (12-78); ALKALINE PHOSPHATASE 168 U/L (45-117); BILIRUBIN,TOTAL 2.2 mg/dL (0.2-1.0); TOTAL PROTEIN 5.6 g/dL (6.4-8.2)
[2017-10-14 06:23] LABS: MD YES; MEAN CORPUSCULAR HGB CONC 34.3 g/dL (32.4-35.8); MEAN PLATELET VOLUME 6.9 fL (7.4-10.4); PLATELET COUNT 145 x10^3/uL (130-400); RED BLOOD COUNT 2.72 x10^6/uL (3.82-5.3)
[2017-10-14 06:25] LABS: BASOS#(MANUAL) 0.05 x10^3/uL (0-0.1); BASOS% (MANUAL) 1 % (0-1); LYMPHS% (MANUAL) 25 % (22-44); MONOS#(MANUAL) 0.16 x10^3/uL (0.3-2.7); MONOS% (MANUAL) 3 % (2-9); SEG#(MANUAL) 3.69 x10^3/uL (1.8-6.8); SEGS% (MANUAL) 71 % (42-75)
[2017-10-14 06:26] LABS: <PLATELET ESTIMATE> ADEQUATE; <PLT MORPHOLOGY> NORMAL PLT MORPH; ANISOCYTOSIS 1+
[2017-10-14 06:27] LABS: TARGET CELLS 1+
[2017-10-14 07:54] VITALS: BP 98/52
[2017-10-14] MEDS: FOLIC ACID 1 MG TABLET PO SCH (09:41)
[2017-10-14] MEDS: THIAMINE 100MG TABLET PO SCH (09:41)
[2017-10-14] MEDS: MULTIVITAMIN 1 TABLET PO SCH (09:41)
[2017-10-14 13:29] VITALS: BP 104/70
[2017-10-14] MEDS: CEFTRIAXONE 1,000 MG in SODIUM CHLORIDE 0.9% 50 ML IV SCH (16:17)
[2017-10-14 19:30] VITALS: BP 130/78
[2017-10-15] MEDS: VANCOMYCIN 50 MG/ML ORAL SUSP PO SCH ×3 (00:44→12:20)
[2017-10-15 02:00] VITALS: BP 109/72
[2017-10-15] MEDS: HEPARIN 5,000 UNITS/ML, 1ML SQ SCH ×2 (02:30→10:34)
[2017-10-15 06:40] VITALS: BP 90/61
[2017-10-15 08:09] LABS: BASOPHILS # (AUTO) 0.01 x10^3/uL (0-0.1); BASOPHILS % (AUTO) 0 % (0-1); EOSINOPHILS % (AUTO) 2 % (1-7); LYMPHOCYTES # (AUTO) 1.57 x10^3/uL (1-3.4); LYMPHOCYTES % (AUTO) 34 % (22-44); MD NO; MEAN CORPUSCULAR HEMOGLOBIN 34.1 pg (27.0-34.8); MEAN CORPUSCULAR HGB CONC 33.8 g/dL (32.4-35.8); MEAN CORPUSCULAR VOLUME 100.8 fL (80-100); MEAN PLATELET VOLUME 6.6 fL (7.4-10.4); MONOCYTES # (AUTO) 0.37 x10^3/uL (0.2-0.8); MONOCYTES % (AUTO) 8 % (2-9); NEUTROPHILS # (AUTO) 2.55 x10^3/uL (1.8-6.8); NEUTROPHILS % (AUTO) 56 % (42-75); PLATELET COUNT 131 x10^3/uL (130-400); RED BLOOD COUNT 2.62 x10^6/uL (3.82-5.3); RED CELL DISTRIBUTION WIDTH 17.6 % (9.6-15.2)
[2017-10-15] MEDS: THIAMINE 100MG TABLET PO SCH (08:13)
[2017-10-15] MEDS: FOLIC ACID 1 MG TABLET PO SCH (08:13)
[2017-10-15] MEDS: MULTIVITAMIN 1 TABLET PO SCH (08:13)
[2017-10-15 08:15] LABS: CHLORIDE 101 mmol/L (98-107)
[2017-10-15 08:20] LABS: ALANINE AMINOTRANSFERASE 16 U/L (12-78); ALBUMIN 1.4 g/dL (3.4-5.0); ALKALINE PHOSPHATASE 149 U/L (45-117); ANION GAP 8 mmol/L (5-15); BILIRUBIN,TOTAL 1.8 mg/dL (0.2-1.0); CALCIUM 7.9 mg/dL (8.5-10.1); TOTAL PROTEIN 5.2 g/dL (6.4-8.2)
[2017-10-15] MEDS: ACETAMINOPHEN 325 MG TABLET PO PRN ×2 (08:21→13:30)
[2017-10-15 12:28] VITALS: BP 106/72
[2017-10-15] MEDS ORDERED: CEFT1FRO2 IV (13:38)
[2017-10-15] MEDS ORDERED: VANC1VIA3 PO (13:38)
[2017-10-15] MEDS: CEFTRIAXONE 1,000 MG in SODIUM CHLORIDE 0.9% 50 ML IV SCH (15:35)
== END 2017-10-15 17:05 | DRG 432 ==
LOC: ED 13:56 → EDIP 14:18 → 4WST 15:40
PROVIDERS: ADMIT Hospitalist; ATTEND Hospitalist
PROC: 0W9G3ZZ Drainage of Peritoneal Cavity, Percutaneous Approach (ICD-10-PCS; principal; 2017-10-12)
DX: K70.31 Alcoholic cirrhosis of liver with ascites (principal); E43 Unspecified severe protein-calorie malnutrition; N17.0 Acute kidney failure with tubular necrosis; A04.72 Enterocolitis due to Clostridium difficile, not specified as recurrent; B19.10 Unspecified viral hepatitis B without hepatic coma; E87.1 Hypo-osmolality and hyponatremia; E87.2 Acidosis; N39.0 Urinary tract infection, site not specified; B96.89 Other specified bacterial agents as the cause of diseases classified elsewhere; D64.9 Anemia, unspecified; D75.89 Other specified diseases of blood and blood-forming organs; E86.1 Hypovolemia; I11.9 Hypertensive heart disease without heart failure; K82.8 Other specified diseases of gallbladder; Z83.3 Family history of diabetes mellitus
CPT/HCPCS: 36415; 82042; 99285; J3370; 49083; 71045; 74181; 80053; 81001; 83690; 85025; 85610; 87070; 87075; 87077; 87086; 87186; 87205; 87324; 87493; 88112; 89051; 93005; 96361; 96374; J0696; J1644; J2405; J3480; J3490; J7030

== ENCOUNTER → 2017-10-26 | Outpatient (CLI) | payer MEDICAID ==
[~2017-10-26] MED LIST changes: +CEFT1FRO2 IV; +FURO20TA3 PO; +LIDOCAINE-MPF 2%, 2ML ONE; +OMEP20TA62 PO; +ONDA4TAB12 PO; +OXYC5CAP2 PO; +SPIR100T4 PO
== END | disposition home or self-care (01) ==
LOC: RAD 10:09
PROVIDERS: ATTEND Family Medicine
DX: K70.31 Alcoholic cirrhosis of liver with ascites (principal)
CPT/HCPCS: 49083; J3490

== ENCOUNTER 2017-11-07 15:14 | Inpatient (IN) | payer MEDICAID ==
[~2017-11-07] VITALS: Ht 160 cm; Wt 67.4 kg
[~2017-11-07 15:14] MED LIST changes: -LIDOCAINE-MPF 2%, 2ML ONE
[2017-11-07] MEDS ORDERED: SODIUM CHLORIDE FLUSH 10ML SYR IVF ONE (15:30)
[2017-11-07 15:51] LABS: MEAN CORPUSCULAR HGB CONC 33.9 g/dL (32.4-35.8); MEAN CORPUSCULAR VOLUME 100.2 fL (80-100); MEAN PLATELET VOLUME 6.5 fL (7.4-10.4); PLATELET COUNT 210 x10^3/uL (130-400); RED BLOOD COUNT 2.69 x10^6/uL (3.82-5.3); RED CELL DISTRIBUTION WIDTH 18.7 % (9.6-15.2)
[2017-11-07 16:02] LABS: INTERNATIONAL NORMALIZED RATIO 1.33 (0.93-1.1); PROTHROMBIN TIME 13.8 Seconds (9.6-11.5)
[2017-11-07 16:03] LABS: ALBUMIN 1.7 g/dL (3.4-5.0); ANION GAP 12 mmol/L (5-15); CALCIUM 8.2 mg/dL (8.5-10.1); CHLORIDE 98 mmol/L (98-107)
[2017-11-07 16:07] LABS: ALANINE AMINOTRANSFERASE 17 U/L (12-78); ALKALINE PHOSPHATASE 144 U/L (45-117); BILIRUBIN,TOTAL 3.2 mg/dL (0.2-1.0); CREATININE 1.93 mg/dL (0.55-1.02); TOTAL PROTEIN 6.3 g/dL (6.4-8.2)
[2017-11-07 16:31] LABS: CULTURE INDICATED? YES; MICROSCOPIC INDICATED
[2017-11-07 16:48] LABS: MD YES
[2017-11-07 16:50] LABS: LYMPH#(MANUAL) 0.98 x10^3/uL (1-3.4); LYMPHS% (MANUAL) 16 % (22-44); MONOS#(MANUAL) 0.06 x10^3/uL (0.3-2.7); MONOS% (MANUAL) 1 % (2-9); SEG#(MANUAL) 5.06 x10^3/uL (1.8-6.8); SEGS% (MANUAL) 83 % (42-75)
[2017-11-07 16:51] LABS: ANISOCYTOSIS 1+
[2017-11-07 16:52] LABS: <PLATELET ESTIMATE> ADEQUATE; <PLT MORPHOLOGY> NORMAL PLT MORPH; HYPOCHROMIA 1+; POLYCHROMASIA 1+; TARGET CELLS 1+
[2017-11-07] MEDS ORDERED: POTASSIUM CHLORIDE 20 MEQ TAB.ER.PRT ONE (17:20)
[2017-11-07] MEDS ORDERED: POTASSIUM CHLORIDE 40 MEQ in SODIUM CHLORIDE 0.9% 500 ML IV ONE (17:30)
[2017-11-07] MEDS ORDERED: SODIUM CHLORIDE 0.9% 1,000ML IVBOLUS ONE (17:30)
[2017-11-07] MEDS ORDERED: POTASSIUM CHLORIDE 20 MEQ TAB.ER.PRT PO ONE (17:30)
[2017-11-07] MEDS ORDERED: POLYETHYLENE GLYCOL 17 GM PACKET PO PRN (19:00)
[2017-11-07] MEDS ORDERED: BISACODYL 10 MG SUPP PR PRN (19:00)
[2017-11-07 19:23] LABS: FOLATE LEVEL 6.5 ng/mL (3.1-17.5)
[2017-11-07] MEDS ORDERED: LIDOCAINE-MPF 2%, 2ML ONE (20:30)
[2017-11-07] MEDS ORDERED: MAGNESIUM SULFATE PMX 2GM/50ML 50 ML IV ONE (22:30)
[2017-11-07] MEDS: LACTULOSE 20 GM/30 ML UDC PO SCH (23:14)
[2017-11-07] MEDS: SODIUM CHLORIDE FLUSH 10ML SYR IVF SCH (23:17)
[2017-11-07] MEDS: HEPARIN 5,000 UNITS/ML, 1ML SQ SCH (23:18)
[2017-11-07 23:28] VITALS: BP 92/60
[2017-11-08 03:30] VITALS: BP 90/53
[2017-11-08] MEDS: OXYcodone IR 5MG TABLET PO PRN ×2 (04:28→08:56)
[2017-11-08 05:13] LABS: OSMOLALITY,URINE 327 mOsm/kg (500-850)
[2017-11-08 06:10] LABS: MEAN CORPUSCULAR VOLUME 100.2 fL (80-100); MEAN PLATELET VOLUME 6.9 fL (7.4-10.4); PLATELET COUNT 189 x10^3/uL (130-400); RED BLOOD COUNT 2.47 x10^6/uL (3.82-5.3); RED CELL DISTRIBUTION WIDTH 18.6 % (9.6-15.2)
[2017-11-08 06:16] LABS: ALBUMIN 1.6 g/dL (3.4-5.0); ANION GAP 11 mmol/L (5-15); CALCIUM 8.3 mg/dL (8.5-10.1); CHLORIDE 103 mmol/L (98-107)
[2017-11-08 06:26] LABS: ALANINE AMINOTRANSFERASE 18 U/L (12-78); ALKALINE PHOSPHATASE 135 U/L (45-117); BILIRUBIN,TOTAL 2.5 mg/dL (0.2-1.0); CREATININE 1.82 mg/dL (0.55-1.02); TOTAL PROTEIN 5.7 g/dL (6.4-8.2)
[2017-11-08 06:41] LABS: CLOSTRIDIUM DIFFICILE ANTIGEN POSITIVE; CLOSTRIDIUM DIFFICILE TOXIN NEGATIVE (Negative)
[2017-11-08 06:55] LABS: MD YES
[2017-11-08 06:59] LABS: ANISOCYTOSIS 1+; BAND#(MANUAL) 0.16 x10^3/uL; BANDS%(MANUAL) 3 % (0-7); HYPOCHROMIA 1+; LYMPH#(MANUAL) 0.86 x10^3/uL (1-3.4); LYMPHS% (MANUAL) 16 % (22-44); MONOS#(MANUAL) 0.11 x10^3/uL (0.3-2.7); MONOS% (MANUAL) 2 % (2-9); POLYCHROMASIA 1+; SEG#(MANUAL) 4.27 x10^3/uL (1.8-6.8); SEGS% (MANUAL) 79 % (42-75); TARGET CELLS 1+
[2017-11-08 07:00] LABS: <PLATELET ESTIMATE> ADEQUATE; <PLT MORPHOLOGY> NORMAL PLT MORPH
[2017-11-08] MEDS ORDERED: MAGNESIUM SULFATE PMX 2GM/50ML 50 ML IV ONE (07:00)
[2017-11-08 07:41] VITALS: BP 95/59
[2017-11-08] MEDS: HEPARIN 5,000 UNITS/ML, 1ML SQ SCH ×2 (08:39→17:39)
[2017-11-08] MEDS: LACTULOSE 20 GM/30 ML UDC PO SCH ×2 (08:39→20:33)
[2017-11-08] MEDS: OMEPRAZOLE 20 MG CAPSULE.DR PO SCH (08:39)
[2017-11-08] MEDS: SODIUM CHLORIDE FLUSH 10ML SYR IVF SCH ×2 (09:00→20:35)
[2017-11-08] MEDS: SENNA/DOCUSATE TABLET PO SCH (09:00)
[2017-11-08 14:30] VITALS: BP 97/65
[2017-11-08 20:00] VITALS: BP 103/70
[2017-11-08] MEDS: ONDANSETRON 2MG/ML, 2ML IVPush PRN (20:53)
[2017-11-09 01:13] VITALS: BP 92/57
[2017-11-09] MEDS: OXYcodone IR 5MG TABLET PO PRN (02:14)
[2017-11-09] MEDS: HEPARIN 5,000 UNITS/ML, 1ML SQ SCH ×2 (02:14→09:32)
[2017-11-09 05:49] LABS: CHLORIDE 101 mmol/L (98-107)
[2017-11-09 05:55] LABS: BASOPHILS % (AUTO) 0 % (0-1); EOSINOPHILS # (AUTO) 0.01 x10^3/uL (0-0.4); EOSINOPHILS % (AUTO) 0 % (1-7); LYMPHOCYTES # (AUTO) 2.52 x10^3/uL (1-3.4); LYMPHOCYTES % (AUTO) 32 % (22-44); MD NO; MEAN CORPUSCULAR HEMOGLOBIN 34.3 pg (27.0-34.8); MEAN CORPUSCULAR HGB CONC 34.4 g/dL (32.4-35.8); MEAN CORPUSCULAR VOLUME 99.8 fL (80-100); MEAN PLATELET VOLUME 6.9 fL (7.4-10.4); MONOCYTES % (AUTO) 6 % (2-9); NEUTROPHILS # (AUTO) 4.81 x10^3/uL (1.8-6.8); NEUTROPHILS % (AUTO) 61 % (42-75); PLATELET COUNT 176 x10^3/uL (130-400); RED BLOOD COUNT 2.57 x10^6/uL (3.82-5.3); RED CELL DISTRIBUTION WIDTH 18.9 % (9.6-15.2)
[2017-11-09 06:07] LABS: ALANINE AMINOTRANSFERASE 18 U/L (12-78); ALBUMIN 1.7 g/dL (3.4-5.0); ALKALINE PHOSPHATASE 130 U/L (45-117); ANION GAP 10 mmol/L (5-15); BILIRUBIN,TOTAL 2.5 mg/dL (0.2-1.0); CALCIUM 8.5 mg/dL (8.5-10.1); CREATININE 1.84 mg/dL (0.55-1.02); TOTAL PROTEIN 5.8 g/dL (6.4-8.2)
[2017-11-09 08:55] VITALS: BP 96/50
[2017-11-09] MEDS: SENNA/DOCUSATE TABLET PO SCH (09:00)
[2017-11-09] MEDS: SODIUM CHLORIDE FLUSH 10ML SYR IVF SCH (09:00)
[2017-11-09] MEDS: OMEPRAZOLE 20 MG CAPSULE.DR PO SCH (09:32)
[2017-11-09] MEDS: LACTULOSE 20 GM/30 ML UDC PO SCH (09:32)
[2017-11-09] MEDS: ONDANSETRON 2MG/ML, 2ML IVPush PRN (10:40)
[2017-11-09 12:32] VITALS: BP 108/69
[2017-11-09] MEDS ORDERED: LACT20SO13 PO (15:11)
== END 2017-11-09 17:15 | DRG 432 ==
LOC: ED 18:31 → EDIP 18:37 → 5SO 22:25 → 4WST 11-09 12:22
PROVIDERS: ADMIT Internal Medicine; ATTEND Internal Medicine
PROC: 0T9B70Z Drainage of Bladder with Drainage Device, Via Natural or Artificial Opening (ICD-10-PCS; principal; 2017-11-07)
PROC: 0W9G3ZZ Drainage of Peritoneal Cavity, Percutaneous Approach (ICD-10-PCS; 2017-11-07)
PROC: 0W9G3ZZ Drainage of Peritoneal Cavity, Percutaneous Approach (ICD-10-PCS; 2017-11-09)
DX: K70.40 Alcoholic hepatic failure without coma (principal); E43 Unspecified severe protein-calorie malnutrition; D68.9 Coagulation defect, unspecified; E87.1 Hypo-osmolality and hyponatremia; J98.11 Atelectasis; B19.10 Unspecified viral hepatitis B without hepatic coma; K70.31 Alcoholic cirrhosis of liver with ascites; I95.9 Hypotension, unspecified; G43.909 Migraine, unspecified, not intractable, without status migrainosus; D50.9 Iron deficiency anemia, unspecified; N18.9 Chronic kidney disease, unspecified; E87.6 Hypokalemia; I12.9 Hypertensive chronic kidney disease with stage 1 through stage 4 chronic kidney disease, or unspecified chronic kidney disease; Z83.3 Family history of diabetes mellitus; Z86.19 Personal history of other infectious and parasitic diseases; Z87.440 Personal history of urinary (tract) infections; Z79.899 Other long term (current) drug therapy; Z68.26 Body mass index [BMI] 26.0-26.9, adult
CPT/HCPCS: 36415; 49083; 70551; 71045; 80053; 80307; 81001; 82140; 82607; 82746; 83690; 83735; 83930; 83935; 85025; 85610; 86850; 86900; 87086; 87324; 87493; 93005; 99285; G0378; J1644; J2405; J3480; J3490; J3475; J7030; J7040

== ENCOUNTER → 2017-11-27 | Outpatient (CLI) | payer MEDICAID ==
[~2017-11-27] MED LIST changes: +LACT20SO13 PO; +LIDOCAINE-MPF 2%, 2ML ONE
== END | disposition home or self-care (01) ==
LOC: RAD 11:30
PROVIDERS: ATTEND Family Medicine
DX: K70.31 Alcoholic cirrhosis of liver with ascites (principal)
CPT/HCPCS: 49083; J3490

== ENCOUNTER 2017-12-01 10:23 | Inpatient (IN) | payer MEDICAID ==
[~2017-12-01] VITALS: Ht 167.6 cm; Wt 66.2 kg
[~2017-12-01 10:23] MED LIST changes: -LIDOCAINE-MPF 2%, 2ML ONE
[2017-12-01] MEDS ORDERED: SODIUM CHLORIDE 0.9% 1,000ML IVBOLUS ONE ×2 (11:00→14:00)
[2017-12-01] MEDS ORDERED: SODIUM CHLORIDE FLUSH 10ML SYR IVF ONE (11:00)
[2017-12-01 11:39] LABS: BASOPHILS % (AUTO) 0 % (0-1); EOSINOPHILS # (AUTO) 0.17 x10^3/uL (0-0.4); EOSINOPHILS % (AUTO) 2 % (1-7); LYMPHOCYTES # (AUTO) 0.45 x10^3/uL (1-3.4); LYMPHOCYTES % (AUTO) 5 % (22-44); MD NO; MEAN CORPUSCULAR HEMOGLOBIN 34.2 pg (27.0-34.8); MEAN CORPUSCULAR HGB CONC 33.5 g/dL (32.4-35.8); MEAN CORPUSCULAR VOLUME 102.1 fL (80-100); MEAN PLATELET VOLUME 6.9 fL (7.4-10.4); MONOCYTES # (AUTO) 0.46 x10^3/uL (0.2-0.8); MONOCYTES % (AUTO) 5 % (2-9); NEUTROPHILS # (AUTO) 8.95 x10^3/uL (1.8-6.8); NEUTROPHILS % (AUTO) 89 % (42-75); PLATELET COUNT 189 x10^3/uL (130-400); RED BLOOD COUNT 2.65 x10^6/uL (3.82-5.3); RED CELL DISTRIBUTION WIDTH 18.1 % (9.6-15.2)
[2017-12-01 11:49] LABS: INTERNATIONAL NORMALIZED RATIO 1.37 (0.93-1.1); PROTHROMBIN TIME 14.2 Seconds (9.6-11.5)
[2017-12-01 11:55] LABS: MICROSCOPIC INDICATED
[2017-12-01 12:35] LABS: CULTURE INDICATED? YES
[2017-12-01] MEDS ORDERED: ONDANSETRON ODT 4 MG ONE (12:58)
[2017-12-01] MEDS ORDERED: ONDANSETRON ODT 4 MG PO ONE (13:00)
[2017-12-01] MEDS ORDERED: SODIUM CHLORIDE FLUSH 10ML SYR IVF PRN (13:30)
[2017-12-01 13:44] LABS: ALBUMIN 1.5 g/dL (3.4-5.0); ANION GAP 13 mmol/L (5-15); CALCIUM 8.3 mg/dL (8.5-10.1); CHLORIDE 95 mmol/L (98-107)
[2017-12-01 13:50] LABS: ALANINE AMINOTRANSFERASE 19 U/L (12-78); ALKALINE PHOSPHATASE 167 U/L (45-117); TOTAL PROTEIN 5.8 g/dL (6.4-8.2)
[2017-12-01] MEDS ORDERED: INSULIN REGULAR 100 UNITS/ML, 3ML VIAL IVPush ONE (14:00)
[2017-12-01] MEDS ORDERED: SODIUM POLY SULFONATE UDC 15 GM/60 ML PO ONE (14:00)
[2017-12-01] MEDS ORDERED: CALCIUM CHLORIDE 10%, 10ML SYR IVPush ONE (14:00)
[2017-12-01] MEDS ORDERED: DEXTROSE 50%, 50ML SYRINGE IVPush ONE (14:00)
[2017-12-01] MEDS ORDERED: CALCIUM CHLORIDE 10%, 10ML SYR ONE (14:32)
[2017-12-01] MEDS ORDERED: SODIUM POLY SULFONATE UDC 15 GM/60 ML ONE (14:32)
[2017-12-01] MEDS ORDERED: DEXTROSE 50%, 50ML SYRINGE ONE (14:33)
[2017-12-01] MEDS ORDERED: INSULIN REGULAR 100 UNITS/ML, 3ML VIAL ONE (14:34)
[2017-12-01] MEDS ORDERED: ONDANSETRON ODT 4 MG PO PRN (15:00)
[2017-12-01] MEDS ORDERED: HEPARIN 5,000 UNITS/ML, 1ML SQ SCH (15:00)
[2017-12-01] MEDS ORDERED: ONDANSETRON 2MG/ML, 2ML IVPush PRN (15:00)
[2017-12-01] MEDS ORDERED: OXYcodone IR 5MG TABLET PO PRN (15:00)
[2017-12-01] MEDS ORDERED: ACETAMINOPHEN 325 MG TABLET PO PRN (15:00)
[2017-12-01] MEDS: ALBUMIN HUMAN 25% 200 ML IV SCH ×2 (15:38→21:32)
[2017-12-01] MEDS: SODIUM ACETATE 75 MEQ in SODIUM CHLORIDE 0.45% 1,000 ML IV SCH (17:10)
[2017-12-01 17:12] VITALS: BP 91/54
[2017-12-01 18:55] LABS: SODIUM,URINE RANDOM < 5 mmol/L
[2017-12-01] MEDS ORDERED: SODIUM CHLORIDE 0.9%, 500ML IVBOLUS ONE ×2 (19:00→21:00)
[2017-12-01] MEDS: LACTULOSE 20 GM/30 ML UDC PO SCH (21:33)
[2017-12-02] VITALS (18 sets, daily range): BP systolic 72–97; BP diastolic 31–57
[2017-12-02] MEDS: SODIUM ACETATE 75 MEQ in SODIUM CHLORIDE 0.45% 1,000 ML IV SCH (03:02)
[2017-12-02] MEDS: ALBUMIN HUMAN 25% 200 ML IV SCH (03:03)
[2017-12-02 05:46] LABS: CLOSTRIDIUM DIFFICILE ANTIGEN POSITIVE; CLOSTRIDIUM DIFFICILE TOXIN NEGATIVE (Negative)
[2017-12-02 06:26] LABS: MEAN CORPUSCULAR HEMOGLOBIN 34.3 pg (27.0-34.8); MEAN CORPUSCULAR HGB CONC 33.5 g/dL (32.4-35.8); MEAN CORPUSCULAR VOLUME 102.6 fL (80-100); MEAN PLATELET VOLUME 6.6 fL (7.4-10.4); PLATELET COUNT 120 x10^3/uL (130-400); RED BLOOD COUNT 1.96 x10^6/uL (3.82-5.3)
[2017-12-02 06:30] LABS: ALANINE AMINOTRANSFERASE 16 U/L (12-78); ALBUMIN 3.3 g/dL (3.4-5.0); ANION GAP 16 mmol/L (5-15); CHLORIDE 98 mmol/L (98-107); CREATININE 6.67 mg/dL (0.55-1.02)
[2017-12-02 06:33] LABS: ALKALINE PHOSPHATASE 124 U/L (45-117); BILIRUBIN,TOTAL 2.1 mg/dL (0.2-1.0); TOTAL PROTEIN 6.2 g/dL (6.4-8.2)
[2017-12-02 06:39] LABS: BASOPHILS # (AUTO) 0.01 x10^3/uL (0-0.1); BASOPHILS % (AUTO) 0 % (0-1); EOSINOPHILS % (AUTO) 0 % (1-7); LYMPHOCYTES # (AUTO) 0.86 x10^3/uL (1-3.4); LYMPHOCYTES % (AUTO) 13 % (22-44); MD SCAN; MONOCYTES # (AUTO) 0.26 x10^3/uL (0.2-0.8); MONOCYTES % (AUTO) 4 % (2-9); NEUTROPHILS # (AUTO) 5.59 x10^3/uL (1.8-6.8); NEUTROPHILS % (AUTO) 83 % (42-75)
[2017-12-02] MEDS ORDERED: LACTULOSE 3.3 GM/5 ML ORAL.SOL RC ONE (07:00)
[2017-12-02] MEDS ORDERED: PANTOPRAZOLE 80 MG in SODIUM CHLORIDE 0.9% 50 ML IV ONE (07:00)
[2017-12-02] MEDS ORDERED: ALBUMIN HUMAN 25% 200 ML IV SCH (09:00)
[2017-12-02] MEDS: LACTULOSE 20 GM/30 ML UDC PO SCH ×2 (09:00→20:31)
[2017-12-02] MEDS: MIDODRINE 5 MG TABLET PO SCH ×3 (09:00→20:31)
[2017-12-02] MEDS: METRONIDAZOLE PMX 500MG/100ML 100 ML IV SCH ×3 (09:34→18:22)
[2017-12-02] MEDS: OCTREOTIDE 500 MCG in SODIUM CHLORIDE 0.9% 249 ML IV SCH ×2 (09:35→16:35)
[2017-12-02] MEDS ORDERED: LIDOCAINE-MPF 1%, 5ML ONE (10:08)
[2017-12-02] MEDS: CEFTRIAXONE PMX 1GM/50ML 50 ML IV SCH (10:57)
[2017-12-02] MEDS: SODIUM BICARB 8.4%,50ML SYR. 75 MEQ in SODIUM CHLORIDE 0.45% 1,000 ML IV SCH ×2 (10:58→20:22)
[2017-12-02] MEDS: PANTOPRAZOLE 80 MG in SODIUM CHLORIDE 0.9% 100 ML IV SCH ×2 (10:58→16:36)
[2017-12-02] MEDS: PHENYLEPHRINE 20 MG in SODIUM CHLORIDE 0.9% 248 ML IV PRN ×2 (12:06→20:30)
[2017-12-02] MEDS: HYDROmorphone 2 MG/ML, 1ML IVPush PRN ×2 (19:09→21:24)
[2017-12-03] MEDS: HYDROmorphone 2 MG/ML, 1ML IVPush PRN ×2 (00:13→11:58)
[2017-12-03] MEDS: METRONIDAZOLE PMX 500MG/100ML 100 ML IV SCH ×4 (00:50→19:12)
[2017-12-03] MEDS: PANTOPRAZOLE 80 MG in SODIUM CHLORIDE 0.9% 100 ML IV SCH ×2 (03:45→13:30)
[2017-12-03] MEDS: OCTREOTIDE 500 MCG in SODIUM CHLORIDE 0.9% 249 ML IV SCH ×2 (03:45→14:59)
[2017-12-03] MEDS: PHENYLEPHRINE 20 MG in SODIUM CHLORIDE 0.9% 248 ML IV PRN ×2 (04:11→11:24)
[2017-12-03] MEDS: LORazepam 2 MG/ML, 1ML IVPush PRN ×4 (04:30→18:48)
[2017-12-03 04:43] LABS: MEAN CORPUSCULAR HEMOGLOBIN 33.3 pg (27.0-34.8); MEAN CORPUSCULAR HGB CONC 34.2 g/dL (32.4-35.8); MEAN CORPUSCULAR VOLUME 97.4 fL (80-100); MEAN PLATELET VOLUME 6.9 fL (7.4-10.4); PLATELET COUNT 93 x10^3/uL (130-400); RED BLOOD COUNT 2.39 x10^6/uL (3.82-5.3); RED CELL DISTRIBUTION WIDTH 19.5 % (9.6-15.2)
[2017-12-03 04:45] LABS: ALBUMIN 3.4 g/dL (3.4-5.0); ANION GAP 14 mmol/L (5-15); CALCIUM 8.5 mg/dL (8.5-10.1); CHLORIDE 98 mmol/L (98-107)
[2017-12-03 04:48] LABS: ALANINE AMINOTRANSFERASE 14 U/L (12-78); ALKALINE PHOSPHATASE 111 U/L (45-117); BILIRUBIN,TOTAL 5.3 mg/dL (0.2-1.0); CREATININE 5.99 mg/dL (0.55-1.02); TOTAL PROTEIN 5.8 g/dL (6.4-8.2)
[2017-12-03 05:40] LABS: MD YES
[2017-12-03 05:41] LABS: BAND#(MANUAL) 0.06 x10^3/uL; BANDS%(MANUAL) 1 % (0-7); LYMPH#(MANUAL) 1.32 x10^3/uL (1-3.4); LYMPHS% (MANUAL) 21 % (22-44); MONOS#(MANUAL) 0.44 x10^3/uL (0.3-2.7); MONOS% (MANUAL) 7 % (2-9); NRBC % (MANUAL) 1 % (0-1); SEG#(MANUAL) 4.47 x10^3/uL (1.8-6.8); SEGS% (MANUAL) 71 % (42-75)
[2017-12-03 05:42] LABS: <PLATELET ESTIMATE> DECREASED; ANISOCYTOSIS 1+; HYPOCHROMIA 1+; POLYCHROMASIA 1+; TARGET CELLS 2+
[2017-12-03 05:43] LABS: <PLT MORPHOLOGY> NORMAL PLT MORPH
[2017-12-03 06:00] VITALS: BP 94/62
[2017-12-03] MEDS: SODIUM BICARB 8.4%,50ML SYR. 75 MEQ in SODIUM CHLORIDE 0.45% 1,000 ML IV SCH ×2 (06:48→19:12)
[2017-12-03] MEDS: CEFTRIAXONE PMX 1GM/50ML 50 ML IV SCH (09:29)
[2017-12-03] MEDS: LACTULOSE 20 GM/30 ML UDC PO SCH (09:42)
[2017-12-03] MEDS: MIDODRINE 5 MG TABLET PO SCH ×2 (09:43→19:11)
[2017-12-03] MEDS: ATROPINE OPHTH SOLN 1%, 5ML PO PRN (21:02)
[2017-12-04] MEDS: ATROPINE OPHTH SOLN 1%, 5ML PO PRN (03:57)
== END 2017-12-04 04:46 | disposition expired | DRG 441 ==
LOC: ED 12:42 → EDIP 13:32 → CCU 16:46
PROVIDERS: ADMIT Internal Medicine; ATTEND Internal Medicine
PROC: 02HV33Z Insertion of Infusion Device into Superior Vena Cava, Percutaneous Approach (ICD-10-PCS; principal; 2017-12-02)
PROC: B548ZZA Ultrasonography of Superior Vena Cava, Guidance (ICD-10-PCS; 2017-12-02)
PROC: 30233L1 Transfusion of Nonautologous Fresh Plasma into Peripheral Vein, Percutaneous Approach (ICD-10-PCS; 2017-12-02)
PROC: 30233N1 Transfusion of Nonautologous Red Blood Cells into Peripheral Vein, Percutaneous Approach (ICD-10-PCS; 2017-12-02)
PROC: 30233K1 Transfusion of Nonautologous Frozen Plasma into Peripheral Vein, Percutaneous Approach (ICD-10-PCS; 2017-12-02)
DX: K76.7 Hepatorenal syndrome (principal); E43 Unspecified severe protein-calorie malnutrition; G93.41 Metabolic encephalopathy; J96.90 Respiratory failure, unspecified, unspecified whether with hypoxia or hypercapnia; A04.72 Enterocolitis due to Clostridium difficile, not specified as recurrent; B19.10 Unspecified viral hepatitis B without hepatic coma; D62 Acute posthemorrhagic anemia; D68.69 Other thrombophilia; E87.2 Acidosis; E87.1 Hypo-osmolality and hyponatremia; K76.6 Portal hypertension; N17.9 Acute kidney failure, unspecified; N39.0 Urinary tract infection, site not specified; K92.2 Gastrointestinal hemorrhage, unspecified; F10.10 Alcohol abuse, uncomplicated; G43.909 Migraine, unspecified, not intractable, without status migrainosus; R57.8 Other shock; K70.40 Alcoholic hepatic failure without coma; D53.9 Nutritional anemia, unspecified; D63.8 Anemia in other chronic diseases classified elsewhere; Z68.23 Body mass index [BMI] 23.0-23.9, adult; E87.5 Hyperkalemia; I10 Essential (primary) hypertension; K70.31 Alcoholic cirrhosis of liver with ascites; Z51.5 Encounter for palliative care; Z66 Do not resuscitate; Z79.4 Long term (current) use of insulin; Z83.3 Family history of diabetes mellitus
CPT/HCPCS: 36415; 36430; 36569; 71045; 74018; 76937; 77001; 80053; 81001; 82140; 82533; 82570; 83690; 83735; 83880; 84100; 84300; 84550; 85014; 85018; 85025; 85610; 85730; 86677; 86850; 86900; 86923; 87081; 87086; 87324; 87493; 93005; G0378; J0696; J1170; J1644; J2354; J7060; P9047; Q0162; C1751; C9113; J2060; J2270; J2370; J7030; J7040; J7050; P9016; P9017